=== PATIENT | male | born 1970 | race Hispanic/Latino ===

== ENCOUNTER 2020-01-30 14:46 | Emergency (ER) | payer SELFPAY ==
[2020-01-30] MEDS ORDERED: KETOROLAC TROMETHAMINE 30MG/ML ONE (16:26)
== END 2020-01-30 17:07 | disposition home or self-care (01) ==
LOC: EDH 14:46
DX: M54.5 Low back pain (principal); Z90.49 Acquired absence of other specified parts of digestive tract; Z88.0 Allergy status to penicillin
CPT/HCPCS: 72100; 96372; 99283; J1885

== ENCOUNTER 2024-01-08 20:32 | Inpatient (IN) | payer BC ==
[~2024-01-08] VITALS: Ht 167.6 cm; Wt 98.6 kg
[2024-01-08 21:29] LABS: BASOPHILS # (AUTO) 0.02 K/uL (0.00-0.20); BASOPHILS % (AUTO) 0.3 % (0.0-5.0); EOSINOPHILS % (AUTO) 1.7 % (0.0-8.0); HEMATOCRIT 40.2 % (42-54); IMMATURE GRANULOCYTE ABSOLUTE 0.03 K/uL (0-1); LYMPHOCYTES # (AUTO) 2.3 K/uL (1.0-4.8); LYMPHOCYTES % (AUTO) 40.6 % (21.0-51.0); MEAN CORPUSCULAR HEMOGLOBIN 30.6 pg (27.0-33.0); MEAN CORPUSCULAR HGB CONC 35.1 g/dL (32.0-36.0); MEAN CORPUSCULAR VOLUME 87.2 fL (79-99); MONOCYTES # (AUTO) 0.5 K/uL (0.1-1.0); MONOCYTES % (AUTO) 8.7 % (3.0-13.0); NEUTROPHILS # (AUTO) 2.8 K/uL (1.8-7.7); NEUTROPHILS % (AUTO) 48.2 % (40.0-77.0); PLATELET COUNT (AUTO) 164 K/uL (130-400); RED BLOOD CELL COUNT(AUTO) 4.61 MIL/uL (4.50-6.20); RED CELL DISTRIBUTION WIDTH 12.2 % (11.0-15.5); WHITE BLOOD COUNT (AUTO) 5.7 K/uL (4.8-10.8)
[2024-01-08 21:45] LABS: POTASSIUM 3.5 mmol/L (3.5-5.1)
[2024-01-08 21:49] LABS: ALBUMIN 3.3 g/dL (3.5-5.0); BILIRUBIN,TOTAL 0.7 mg/dL (0.2-1.0); TOTAL PROTEIN, SERUM 7.4 g/dL (6.0-8.3)
[2024-01-08] MEDS ORDERED: IOHEXOL 350 MG/ML 100ML INFUS..BTL IV ONE (22:08)
[2024-01-08 22:35] LABS: APPEARANCE,URINE CLEAR (CLEAR); BILIRUBIN,URINE NEGATIVE (NEGATIVE); COLOR,URINE YELLOW (YELLOW); GLUCOSE, URINE (UA) NEGATIVE (NEGATIVE); KETONES,URINE 20 mg/dL (NEGATIVE); LEUKOCYTE ESTERASE ,URINE NEGATIVE Leu/uL (NEGATIVE); NITRATE,URINE NEGATIVE (NEGATIVE); OCCULT BLOOD,URINE NEGATIVE (NEGATIVE); PH,URINE 5.5 (5.0-8.0); PROTEIN,URINE 20 mg/dL (NEGATIVE); UROBILINOGEN,URINE 0.2 mg/dL (0.2-1.0)
[2024-01-08 22:38] LABS: ADD UA MICROSCOPIC YES
[2024-01-08 22:41] LABS: BACTERIA,URINE FEW /HPF (None Seen); MUCUS,URINE MANY LPF (None Seen); SQUAMOUS EPITHELIAL CELL,UR RARE /HPF (0-2)
[2024-01-08] MEDS ORDERED: ZOSYN 3.375GM +NS 50ML IV ONE (23:00)
[2024-01-09] VITALS (9 sets, daily range): BP systolic 102–124; BP diastolic 50–78; PULSE 50–65; RESP 17–19; O2SAT 96–100
[2024-01-09] MEDS: METRONIDAZOLE 500MG/100ML BAG IV SCH (00:14)
[2024-01-09] MEDS: METRONIDAZOLE 500MG/100ML BAG 100 ML IV SCH (04:00)
[2024-01-09] MEDS ORDERED: ONDANSETRON 4MG INJ IV PRN (04:00)
[2024-01-09] MEDS: 0.9%NACL 1000ML 1,000 ML IV SCH (04:13)
[2024-01-09] MEDS ORDERED: CIPR500T10 PO (04:34)
[2024-01-09] MEDS ORDERED: METR-172 PO (04:34)
[2024-01-09 05:53] LABS: BASOPHILS # (AUTO) 0.02 K/uL (0.00-0.20); BASOPHILS % (AUTO) 0.4 % (0.0-5.0); EOSINOPHILS # (AUTO) 0.12 K/uL (0.00-0.70); EOSINOPHILS % (AUTO) 2.6 % (0.0-8.0); HEMATOCRIT 35.9 % (42-54); IMMATURE GRANULOCYTE ABSOLUTE 0.01 K/uL (0-1); LYMPHOCYTES # (AUTO) 2.1 K/uL (1.0-4.8); LYMPHOCYTES % (AUTO) 44.2 % (21.0-51.0); MEAN CORPUSCULAR HEMOGLOBIN 29.5 pg (27.0-33.0); MEAN CORPUSCULAR HGB CONC 34.5 g/dL (32.0-36.0); MEAN CORPUSCULAR VOLUME 85.3 fL (79-99); MONOCYTES # (AUTO) 0.5 K/uL (0.1-1.0); MONOCYTES % (AUTO) 11.2 % (3.0-13.0); NEUTROPHILS # (AUTO) 1.9 K/uL (1.8-7.7); NEUTROPHILS % (AUTO) 41.4 % (40.0-77.0); PLATELET COUNT (AUTO) 146 K/uL (130-400); RED BLOOD CELL COUNT(AUTO) 4.21 MIL/uL (4.50-6.20); RED CELL DISTRIBUTION WIDTH 12.3 % (11.0-15.5); WHITE BLOOD COUNT (AUTO) 4.6 K/uL (4.8-10.8)
[2024-01-09 06:07] LABS: BILIRUBIN,TOTAL 0.6 mg/dL (0.2-1.0); POTASSIUM 3.5 mmol/L (3.5-5.1); TOTAL PROTEIN, SERUM 6.6 g/dL (6.0-8.3)
[2024-01-09] MEDS: FAMOTIDINE 20MG VIAL IV SCH (08:52)
[2024-01-09] MEDS: LEVOFLOXACIN 500 MG/D5W 100 ML 100 ML IV SCH (09:30)
[2024-01-10] VITALS (8 sets, daily range): BP systolic 104–122; BP diastolic 57–73; PULSE 54–67; RESP 14–19; O2SAT 100
[2024-01-11] VITALS (8 sets, daily range): BP systolic 108–138; BP diastolic 54–70; PULSE 67–98; RESP 14–18; O2SAT 96–99
[2024-01-11 05:11] LABS: BASOPHILS # (AUTO) 0.02 K/uL (0.00-0.20); BASOPHILS % (AUTO) 0.4 % (0.0-5.0); EOSINOPHILS % (AUTO) 1.9 % (0.0-8.0); HEMATOCRIT 34.5 % (42-54); IMMATURE GRANULOCYTE ABSOLUTE 0.03 K/uL (0-1); LYMPHOCYTES # (AUTO) 1.5 K/uL (1.0-4.8); LYMPHOCYTES % (AUTO) 28.9 % (21.0-51.0); MEAN CORPUSCULAR HEMOGLOBIN 29.6 pg (27.0-33.0); MEAN CORPUSCULAR HGB CONC 34.5 g/dL (32.0-36.0); MEAN CORPUSCULAR VOLUME 85.8 fL (79-99); MONOCYTES # (AUTO) 0.5 K/uL (0.1-1.0); MONOCYTES % (AUTO) 10.1 % (3.0-13.0); NEUTROPHILS % (AUTO) 58.1 % (40.0-77.0); PLATELET COUNT (AUTO) 146 K/uL (130-400); RED BLOOD CELL COUNT(AUTO) 4.02 MIL/uL (4.50-6.20); WHITE BLOOD COUNT (AUTO) 5.2 K/uL (4.8-10.8)
[2024-01-11] MEDS: KETOROLAC 15MG/ML VIAL (15MG/ML) IV PRN (10:57)
[2024-01-11] MEDS ORDERED: ACETAMINOPHEN 325 MG TAB PO PRN (11:30)
[2024-01-12] VITALS (8 sets, daily range): BP systolic 99–125; BP diastolic 68–83; PULSE 52–73; RESP 14–18; O2SAT 98
[2024-01-12 04:02] LABS: BASOPHILS # (AUTO) 0.01 K/uL (0.00-0.20); BASOPHILS % (AUTO) 0.2 % (0.0-5.0); EOSINOPHILS # (AUTO) 0.05 K/uL (0.00-0.70); EOSINOPHILS % (AUTO) 0.8 % (0.0-8.0); HEMATOCRIT 34.3 % (42-54); IMMATURE GRANULOCYTE ABSOLUTE 0.03 K/uL (0-1); LYMPHOCYTES # (AUTO) 1.1 K/uL (1.0-4.8); LYMPHOCYTES % (AUTO) 16.9 % (21.0-51.0); MEAN CORPUSCULAR HEMOGLOBIN 30.7 pg (27.0-33.0); MEAN CORPUSCULAR HGB CONC 35.6 g/dL (32.0-36.0); MEAN CORPUSCULAR VOLUME 86.2 fL (79-99); MONOCYTES # (AUTO) 0.6 K/uL (0.1-1.0); MONOCYTES % (AUTO) 9.6 % (3.0-13.0); NEUTROPHILS # (AUTO) 4.7 K/uL (1.8-7.7); PLATELET COUNT (AUTO) 129 K/uL (130-400); RED BLOOD CELL COUNT(AUTO) 3.98 MIL/uL (4.50-6.20); RED CELL DISTRIBUTION WIDTH 11.9 % (11.0-15.5); WHITE BLOOD COUNT (AUTO) 6.5 K/uL (4.8-10.8)
[2024-01-12 04:19] LABS: CREATININE 0.9 mg/dL (0.5-1.3); POTASSIUM 3.2 mmol/L (3.5-5.1)
[2024-01-12] MEDS ORDERED: POTASSIUM CHLORIDE 20MEQ/100ML 100 ML IV PRN (10:00)
[2024-01-12] MEDS ORDERED: POTASSIUM CHLORIDE 10% ELIXIR 20 MEQ/15 ML UDCUP PO PRN (10:00)
[2024-01-12] MEDS: DIPHENHYDRAMINE HCL 25 MG CAPSULE PO PRN (10:36)
[2024-01-12] MEDS: KCL 20 MEQ ERTAB PO PRN (10:36)
[2024-01-12] MEDS: MAGNESIUM 2GM PREMIX 50ML 50 ML IV PRN (10:36)
[2024-01-12] MEDS: MORPHINE 2 MG SYG IVP PRN (12:20)
[2024-01-12 13:14] LABS: C DIFFICILE TOXIN A/B Not Detected (Not Detected); ENTEROAGGREGATIVE ECOLI Not Detected (Not Detected); GIARDIA LAMBLIA Not Detected (Not Detected); PLESIOMONAS SHIGELOIDES Not Detected (Not Detected); SAPOVIRUS Not Detected (Not Detected); SHIGELLA/ENTEROINVASIVE E COLI Not Detected (Not Detected); VIBRIO Not Detected (Not Detected); VIBRIO CHOLERAE Not Detected (Not Detected)
[2024-01-13] VITALS (7 sets, daily range): BP systolic 117–130; BP diastolic 70–85; PULSE 56–66; RESP 14–18; O2SAT 97
[2024-01-13 03:36] LABS: BASOPHILS # (AUTO) 0.02 K/uL (0.00-0.20); BASOPHILS % (AUTO) 0.4 % (0.0-5.0); IMMATURE GRANULOCYTE ABSOLUTE 0.03 K/uL (0-1); LYMPHOCYTES # (AUTO) 1.5 K/uL (1.0-4.8); LYMPHOCYTES % (AUTO) 29.8 % (21.0-51.0); MEAN CORPUSCULAR HEMOGLOBIN 30.3 pg (27.0-33.0); MEAN CORPUSCULAR HGB CONC 35.9 g/dL (32.0-36.0); MEAN CORPUSCULAR VOLUME 84.6 fL (79-99); MONOCYTES # (AUTO) 0.7 K/uL (0.1-1.0); MONOCYTES % (AUTO) 12.9 % (3.0-13.0); NEUTROPHILS # (AUTO) 2.8 K/uL (1.8-7.7); NEUTROPHILS % (AUTO) 54.3 % (40.0-77.0); PLATELET COUNT (AUTO) 120 K/uL (130-400); RED BLOOD CELL COUNT(AUTO) 4.02 MIL/uL (4.50-6.20); RED CELL DISTRIBUTION WIDTH 12.2 % (11.0-15.5); WHITE BLOOD COUNT (AUTO) 5.1 K/uL (4.8-10.8)
[2024-01-13 03:42] LABS: CREATININE 0.8 mg/dL (0.5-1.3)
[2024-01-13] MEDS ORDERED: DIATR MEGLU/DIATRIZOATE SODIUM 30 ML BOTTLE ONE (07:54)
[2024-01-13] MEDS ORDERED: IOHEXOL-350 75 ML VIAL IV ONE (10:19)
[2024-01-13] MEDS ORDERED: PHARMACY COMMUNICATION MISC SCH (13:30)
[2024-01-13] MEDS ORDERED: COMPOUND IV MISC 1 EACH IVSOLN MISC PRN (13:30)
[2024-01-13] MEDS: FLUCONAZOLE 200 MG/NS 100 ML 100 ML IV SCH (13:32)
[2024-01-13] MEDS: MEROPENEM 1 GM in 0.9%NACL 100ML 100 ML IVPB SCH (15:37)
[2024-01-14] VITALS (9 sets, daily range): BP systolic 102–137; BP diastolic 66–79; PULSE 61–70; RESP 18–20; O2SAT 98–99
[2024-01-14 09:29] LABS: BASOPHILS # (AUTO) 0.01 K/uL (0.00-0.20); BASOPHILS % (AUTO) 0.2 % (0.0-5.0); EOSINOPHILS # (AUTO) 0.11 K/uL (0.00-0.70); EOSINOPHILS % (AUTO) 1.8 % (0.0-8.0); HEMATOCRIT 36.3 % (42-54); IMMATURE GRANULOCYTE ABSOLUTE 0.04 K/uL (0-1); LYMPHOCYTES # (AUTO) 1.2 K/uL (1.0-4.8); LYMPHOCYTES % (AUTO) 18.8 % (21.0-51.0); MEAN CORPUSCULAR HEMOGLOBIN 30.3 pg (27.0-33.0); MEAN CORPUSCULAR HGB CONC 34.7 g/dL (32.0-36.0); MEAN CORPUSCULAR VOLUME 87.3 fL (79-99); MONOCYTES # (AUTO) 0.6 K/uL (0.1-1.0); MONOCYTES % (AUTO) 9.5 % (3.0-13.0); NEUTROPHILS # (AUTO) 4.3 K/uL (1.8-7.7); NEUTROPHILS % (AUTO) 69.1 % (40.0-77.0); PLATELET COUNT (AUTO) 108 K/uL (130-400); RED BLOOD CELL COUNT(AUTO) 4.16 MIL/uL (4.50-6.20); RED CELL DISTRIBUTION WIDTH 12.3 % (11.0-15.5); WHITE BLOOD COUNT (AUTO) 6.2 K/uL (4.8-10.8)
[2024-01-14 09:36] LABS: CREATININE 0.8 mg/dL (0.5-1.3); MAGNESIUM 1.7 mg/dL (1.80-2.40); POTASSIUM 3.7 mmol/L (3.5-5.1)
[2024-01-15 04:00] VITALS: BP 101/64; PULSE 64; RESP 19
[2024-01-15 07:11] VITALS: BP 116/65; PULSE 54; RESP 17
[2024-01-15 08:00] VITALS: O2SAT 99
[2024-01-15 11:45] VITALS: BP 127/66; PULSE 57; RESP 16
[2024-01-15] MEDS: MORPHINE 2 MG SYG IVP PRN (15:19)
[2024-01-15 16:22] VITALS: BP 115/63; PULSE 62; RESP 17
[2024-01-15 20:00] VITALS: BP 115/73; PULSE 67; RESP 17
[2024-01-16] VITALS (7 sets, daily range): BP systolic 107–135; BP diastolic 66–78; PULSE 51–71; RESP 17–18; O2SAT 97–100
[2024-01-16 05:21] LABS: BASOPHILS # (AUTO) 0.02 K/uL (0.00-0.20); BASOPHILS % (AUTO) 0.4 % (0.0-5.0); EOSINOPHILS # (AUTO) 0.14 K/uL (0.00-0.70); EOSINOPHILS % (AUTO) 2.6 % (0.0-8.0); HEMATOCRIT 37.8 % (42-54); IMMATURE GRANULOCYTE ABSOLUTE 0.06 K/uL (0-1); LYMPHOCYTES # (AUTO) 2.2 K/uL (1.0-4.8); LYMPHOCYTES % (AUTO) 39.6 % (21.0-51.0); MEAN CORPUSCULAR HEMOGLOBIN 29.9 pg (27.0-33.0); MEAN CORPUSCULAR HGB CONC 34.1 g/dL (32.0-36.0); MEAN CORPUSCULAR VOLUME 87.5 fL (79-99); MONOCYTES # (AUTO) 0.6 K/uL (0.1-1.0); MONOCYTES % (AUTO) 10.3 % (3.0-13.0); NEUTROPHILS # (AUTO) 2.5 K/uL (1.8-7.7); PLATELET COUNT (AUTO) 120 K/uL (130-400); RED BLOOD CELL COUNT(AUTO) 4.32 MIL/uL (4.50-6.20); RED CELL DISTRIBUTION WIDTH 12.6 % (11.0-15.5); WHITE BLOOD COUNT (AUTO) 5.5 K/uL (4.8-10.8)
[2024-01-16 05:32] LABS: ALBUMIN 2.7 g/dL (3.5-5.0); CREATININE 0.9 mg/dL (0.5-1.3); MAGNESIUM 1.7 mg/dL (1.80-2.40); POTASSIUM 3.7 mmol/L (3.5-5.1); TOTAL PROTEIN, SERUM 6.1 g/dL (6.0-8.3)
[2024-01-16 06:03] LABS: BILIRUBIN,TOTAL 0.7 mg/dL (0.2-1.0)
[2024-01-17] VITALS (8 sets, daily range): BP systolic 107–120; BP diastolic 63–74; PULSE 55–63; RESP 16–20; O2SAT 98–100
[2024-01-17 05:42] LABS: BASOPHILS # (AUTO) 0.02 K/uL (0.00-0.20); BASOPHILS % (AUTO) 0.4 % (0.0-5.0); EOSINOPHILS # (AUTO) 0.11 K/uL (0.00-0.70); EOSINOPHILS % (AUTO) 2.2 % (0.0-8.0); HEMATOCRIT 35.6 % (42-54); IMMATURE GRANULOCYTE ABSOLUTE 0.03 K/uL (0-1); LYMPHOCYTES # (AUTO) 1.9 K/uL (1.0-4.8); LYMPHOCYTES % (AUTO) 37.8 % (21.0-51.0); MEAN CORPUSCULAR HEMOGLOBIN 30.7 pg (27.0-33.0); MEAN CORPUSCULAR HGB CONC 36.5 g/dL (32.0-36.0); MONOCYTES # (AUTO) 0.5 K/uL (0.1-1.0); MONOCYTES % (AUTO) 9.7 % (3.0-13.0); NEUTROPHILS # (AUTO) 2.5 K/uL (1.8-7.7); NEUTROPHILS % (AUTO) 49.3 % (40.0-77.0); PLATELET COUNT (AUTO) 132 K/uL (130-400); RED BLOOD CELL COUNT(AUTO) 4.24 MIL/uL (4.50-6.20); RED CELL DISTRIBUTION WIDTH 12.6 % (11.0-15.5)
[2024-01-17 05:50] LABS: CREATININE 0.8 mg/dL (0.5-1.3); POTASSIUM 3.6 mmol/L (3.5-5.1)
[2024-01-17] MEDS: MAGNESIUM OXIDE 400 MG TABLET PO SCH (23:01)
[2024-01-18 04:00] VITALS: BP 104/65; PULSE 51; RESP 19
[2024-01-18 08:00] VITALS: BP 118/74; PULSE 70; RESP 16
[2024-01-18] MEDS ORDERED: MAGN400T7 PO (10:51)
[2024-01-18 12:00] VITALS: BP 109/70; PULSE 65; RESP 18
== END 2024-01-18 13:00 | disposition home or self-care (01) | DRG 392 ==
LOC: EDH 20:32 → EDHIP 01-09 03:56 → OBSVTOIN 01-09 03:56 → 3DH 01-09 04:10
PROVIDERS: ADMIT Hospitalist; ATTEND Hospitalist
DX: K57.32 Diverticulitis of large intestine without perforation or abscess without bleeding (principal); E44.1 Mild protein-calorie malnutrition; Z68.33 Body mass index [BMI] 33.0-33.9, adult; E66.9 Obesity, unspecified; K40.20 Bilateral inguinal hernia, without obstruction or gangrene, not specified as recurrent; E87.6 Hypokalemia
CPT/HCPCS: 36415; 74018; 74177; 80048; 80053; 81001; 83690; 83735; 84145; 85025; 87507; G0378; J1450; J1885; J1956; J2185; J2270; J3475; J3490; J7030; Q0163; Q9963; Q9967

== ENCOUNTER 2024-01-27 11:11 | Inpatient (IN) | payer BC ==
[~2024-01-27] VITALS: Ht 172.7 cm; Wt 89.0 kg
[~2024-01-27 11:11] MED LIST: MAGN400T7 PO
[2024-01-27 11:44] LABS: BASOPHILS # (AUTO) 0.03 K/uL (0.00-0.20); BASOPHILS % (AUTO) 0.3 % (0.0-5.0); EOSINOPHILS # (AUTO) 0.01 K/uL (0.00-0.70); EOSINOPHILS % (AUTO) 0.1 % (0.0-8.0); HEMATOCRIT 47.7 % (42-54); IMMATURE GRANULOCYTE ABSOLUTE 0.03 K/uL (0-1); LYMPHOCYTES # (AUTO) 1.9 K/uL (1.0-4.8); LYMPHOCYTES % (AUTO) 15.7 % (21.0-51.0); MEAN CORPUSCULAR HEMOGLOBIN 30.5 pg (27.0-33.0); MEAN CORPUSCULAR VOLUME 87.2 fL (79-99); MONOCYTES % (AUTO) 8.5 % (3.0-13.0); NEUTROPHILS # (AUTO) 8.9 K/uL (1.8-7.7); NEUTROPHILS % (AUTO) 75.1 % (40.0-77.0); PLATELET COUNT (AUTO) 130 K/uL (130-400); RED BLOOD CELL COUNT(AUTO) 5.47 MIL/uL (4.50-6.20); RED CELL DISTRIBUTION WIDTH 12.2 % (11.0-15.5); WHITE BLOOD COUNT (AUTO) 11.8 K/uL (4.8-10.8)
[2024-01-27 11:47] LABS: BILIRUBIN,URINE 0.5 mg/dL (NEGATIVE); GLUCOSE, URINE (UA) NEGATIVE (NEGATIVE); KETONES,URINE 150 mg/dL (NEGATIVE); LEUKOCYTE ESTERASE ,URINE NEGATIVE Leu/uL (NEGATIVE); NITRATE,URINE NEGATIVE (NEGATIVE); OCCULT BLOOD,URINE MODERATE (NEGATIVE); PROTEIN,URINE 300 mg/dL (NEGATIVE)
[2024-01-27 11:50] LABS: ADD UA MICROSCOPIC YES; APPEARANCE,URINE HAZY (CLEAR); COLOR,URINE DARK-YELLOW (YELLOW)
[2024-01-27 11:52] LABS: BACTERIA,URINE FEW /HPF (None Seen); MUCUS,URINE MANY LPF (None Seen); RBC,URINE 51-100 /HPF (0-1); SQUAMOUS EPITHELIAL CELL,UR RARE /HPF (0-2)
[2024-01-27 11:54] LABS: CREATININE 1.1 mg/dL (0.5-1.3); POTASSIUM 3.8 mmol/L (3.5-5.1)
[2024-01-27 11:59] LABS: ALBUMIN 4.1 g/dL (3.5-5.0); BILIRUBIN,TOTAL 2.1 mg/dL (0.2-1.0); TOTAL PROTEIN, SERUM 8.8 g/dL (6.0-8.3)
[2024-01-27] MEDS: 0.9%NACL 1000ML 1,000 ML IV ONE ×2 (14:14→14:16)
[2024-01-27] MEDS: MORPHINE 4 MG SYG ONE (14:14)
[2024-01-27] MEDS: MORPHINE 4 MG SYG IVP ONE (14:16)
[2024-01-27] MEDS: LEVOFLOXACIN 500 MG/D5W 100 ML 100 ML IV ONE (15:49)
[2024-01-27] MEDS: 0.9%NACL 1000ML 1,000 ML IV SCH (16:42)
[2024-01-27] MEDS: METRONIDAZOLE 500MG/100ML BAG IV ONE (16:42)
[2024-01-27 16:56] LABS: HEMOGLOBIN A1C 5.2 % (4.0-6.0)
[2024-01-27 17:18] LABS: THYROID STIMULATING HORMONE 0.95 uIU/mL (0.36-3.74)
[2024-01-27 18:00] VITALS: O2SAT 98
[2024-01-27 18:18] LABS: INR 1.06 (0.85-1.15); PROTHROMBIN TIME 12.4 SEC (9.6-11.6)
[2024-01-27 18:20] LABS: PARTIAL THROMBOPLASTIN TIME 30.6 SEC (26.3-35.5)
[2024-01-27 18:30] VITALS: BP 119/64; PULSE 57; RESP 16
[2024-01-27] MEDS: FAMOTIDINE 20MG VIAL IV SCH (19:46)
[2024-01-27] MEDS: METRONIDAZOLE 500MG/100ML BAG 100 ML IVPB SCH (19:46)
[2024-01-27 20:00] VITALS: BP 104/53; PULSE 61; RESP 19; O2SAT 98
[2024-01-28] VITALS (9 sets, daily range): BP systolic 101–119; BP diastolic 55–65; PULSE 51–77; RESP 16–20; O2SAT 98
[2024-01-28 06:18] LABS: BASOPHILS # (AUTO) 0.03 K/uL (0.00-0.20); BASOPHILS % (AUTO) 0.4 % (0.0-5.0); EOSINOPHILS # (AUTO) 0.03 K/uL (0.00-0.70); EOSINOPHILS % (AUTO) 0.4 % (0.0-8.0); HEMATOCRIT 36.1 % (42-54); IMMATURE GRANULOCYTE ABSOLUTE 0.03 K/uL (0-1); LYMPHOCYTES # (AUTO) 1.6 K/uL (1.0-4.8); LYMPHOCYTES % (AUTO) 20.3 % (21.0-51.0); MEAN CORPUSCULAR HEMOGLOBIN 29.9 pg (27.0-33.0); MEAN CORPUSCULAR HGB CONC 34.1 g/dL (32.0-36.0); MEAN CORPUSCULAR VOLUME 87.8 fL (79-99); MONOCYTES % (AUTO) 12.6 % (3.0-13.0); NEUTROPHILS # (AUTO) 5.1 K/uL (1.8-7.7); NEUTROPHILS % (AUTO) 65.9 % (40.0-77.0); PLATELET COUNT (AUTO) 95 K/uL (130-400); RED BLOOD CELL COUNT(AUTO) 4.11 MIL/uL (4.50-6.20); RED CELL DISTRIBUTION WIDTH 12.2 % (11.0-15.5); WHITE BLOOD COUNT (AUTO) 7.8 K/uL (4.8-10.8)
[2024-01-28 06:36] LABS: CREATININE 0.8 mg/dL (0.5-1.3); POTASSIUM 3.9 mmol/L (3.5-5.1)
[2024-01-28] MEDS: LEVOFLOXACIN 500 MG/D5W 100 ML 100 ML IV SCH (09:20)
[2024-01-28] MEDS: FLUCONAZOLE 200 MG/NS 100 ML 100 ML IV SCH (12:16)
[2024-01-28] MEDS: PHENAZOPYRIDINE HCL 200 MG TABLET PO PRN (12:16)
[2024-01-28] MEDS ORDERED: COMPOUND IV MISC 1 EACH IVSOLN MISC PRN (12:30)
[2024-01-28] MEDS: MORPHINE 4 MG SYG IVP PRN (14:16)
[2024-01-28] MEDS: MEROPENEM 1 GM in 0.9%NACL 100ML IVPB SCH (14:18)
[2024-01-29] VITALS (17 sets, daily range): BP systolic 96–133; BP diastolic 55–107; PULSE 56–75; RESP 14–18; O2SAT 98
[2024-01-29 05:13] LABS: BASOPHILS # (AUTO) 0.01 K/uL (0.00-0.20); BASOPHILS % (AUTO) 0.1 % (0.0-5.0); EOSINOPHILS # (AUTO) 0.03 K/uL (0.00-0.70); EOSINOPHILS % (AUTO) 0.3 % (0.0-8.0); HEMATOCRIT 35.7 % (42-54); IMMATURE GRANULOCYTE ABSOLUTE 0.05 K/uL (0-1); LYMPHOCYTES # (AUTO) 1.5 K/uL (1.0-4.8); LYMPHOCYTES % (AUTO) 16.2 % (21.0-51.0); MEAN CORPUSCULAR HEMOGLOBIN 29.4 pg (27.0-33.0); MEAN CORPUSCULAR HGB CONC 33.9 g/dL (32.0-36.0); MEAN CORPUSCULAR VOLUME 86.9 fL (79-99); MONOCYTES # (AUTO) 1.1 K/uL (0.1-1.0); MONOCYTES % (AUTO) 12.3 % (3.0-13.0); NEUTROPHILS # (AUTO) 6.3 K/uL (1.8-7.7); NEUTROPHILS % (AUTO) 70.5 % (40.0-77.0); PLATELET COUNT (AUTO) 109 K/uL (130-400); RED BLOOD CELL COUNT(AUTO) 4.11 MIL/uL (4.50-6.20); RED CELL DISTRIBUTION WIDTH 12.3 % (11.0-15.5)
[2024-01-29 05:26] LABS: INR 1.03 (0.85-1.15); PROTHROMBIN TIME 12.1 SEC (9.6-11.6)
[2024-01-29 05:27] LABS: PARTIAL THROMBOPLASTIN TIME 31.9 SEC (26.3-35.5)
[2024-01-29 05:35] LABS: CREATININE 0.9 mg/dL (0.5-1.3); POTASSIUM 3.7 mmol/L (3.5-5.1)
[2024-01-29] MEDS ORDERED: MEROPENEM 1 GM in 0.9%NACL 100ML IVPB SCH (21:00)
[2024-01-30] VITALS (8 sets, daily range): BP systolic 114–121; BP diastolic 67–76; PULSE 57–82; RESP 14–18; O2SAT 98
[2024-01-30] MEDS: MEROPENEM 1 GM in 0.9%NACL 100ML IVPB SCH (00:18)
[2024-01-30] MEDS: KETOROLAC 15MG/ML VIAL (15MG/ML) IV ONE (02:37)
[2024-01-30] MEDS: ENOXAPARIN SODIUM 30 MG/0.3 ML SQ SCH (08:51)
[2024-01-30 14:10] LABS: INR 1.02 (0.85-1.15)
[2024-01-30] MEDS: ACETAMINOPHEN 325 MG TAB PO PRN (23:15)
[2024-01-31] VITALS (7 sets, daily range): BP systolic 117–129; BP diastolic 71–82; PULSE 58–69; RESP 14–19; O2SAT 98
[2024-01-31 06:51] LABS: INR 1.04 (0.85-1.15); PROTHROMBIN TIME 12.2 SEC (9.6-11.6)
[2024-01-31 06:52] LABS: PARTIAL THROMBOPLASTIN TIME 31.1 SEC (26.3-35.5)
[2024-01-31 15:52] LABS: HIV 1&2 ANTIBODY Non-Reactive (Negative); HIV-1 p24 Antigen Non-Reactive (Negative)
[2024-02-01] VITALS (9 sets, daily range): BP systolic 108–139; BP diastolic 63–82; PULSE 55–87; RESP 17–19; TEMP 102.1; O2SAT 97
[2024-02-01] MEDS ORDERED: IOHEXOL 350 MG/ML 100ML INFUS..BTL IV ONE (03:39)
[2024-02-01] MEDS ORDERED: IOHEXOL-350 75 ML VIAL IV ONE (05:47)
[2024-02-01] MEDS ORDERED: PHARMACY COMMUNICATION MISC ONE (06:10)
[2024-02-01] MEDS: TAMSULOSIN HCL 0.4 MG CAP.ER.24H PO SCH (09:35)
[2024-02-01] MEDS: KETOROLAC 15MG/ML VIAL (15MG/ML) IV PRN (10:17)
[2024-02-01 11:24] LABS: APPEARANCE,URINE CLEAR (CLEAR); BILIRUBIN,URINE NEGATIVE (NEGATIVE); COLOR,URINE YELLOW (YELLOW); GLUCOSE, URINE (UA) NEGATIVE (NEGATIVE); KETONES,URINE 60 mg/dL (NEGATIVE); LEUKOCYTE ESTERASE ,URINE NEGATIVE Leu/uL (NEGATIVE); NITRATE,URINE NEGATIVE (NEGATIVE); PH,URINE 6.5 (5.0-8.0); PROTEIN,URINE 100 mg/dL (NEGATIVE); UROBILINOGEN,URINE >=8.0 mg/dL (0.2-1.0)
[2024-02-01 11:26] LABS: ADD UA MICROSCOPIC YES
[2024-02-01 11:27] LABS: BACTERIA,URINE RARE /HPF (None Seen); SQUAMOUS EPITHELIAL CELL,UR RARE /HPF (0-2)
[2024-02-01] MEDS: 0.9%NACL 10ML VIAL IV SCH (21:00)
[2024-02-02] VITALS (9 sets, daily range): BP systolic 100–146; BP diastolic 55–84; PULSE 62–88; RESP 14–19; O2SAT 97–99
[2024-02-02 04:19] LABS: BASOPHILS # (AUTO) 0.02 K/uL (0.00-0.20); BASOPHILS % (AUTO) 0.2 % (0.0-5.0); EOSINOPHILS # (AUTO) 0.03 K/uL (0.00-0.70); EOSINOPHILS % (AUTO) 0.3 % (0.0-8.0); IMMATURE GRANULOCYTE ABSOLUTE 0.04 K/uL (0-1); LYMPHOCYTES # (AUTO) 1.6 K/uL (1.0-4.8); LYMPHOCYTES % (AUTO) 15.3 % (21.0-51.0); MEAN CORPUSCULAR HEMOGLOBIN 29.6 pg (27.0-33.0); MEAN CORPUSCULAR HGB CONC 34.8 g/dL (32.0-36.0); MEAN CORPUSCULAR VOLUME 84.8 fL (79-99); MONOCYTES # (AUTO) 0.8 K/uL (0.1-1.0); MONOCYTES % (AUTO) 7.6 % (3.0-13.0); NEUTROPHILS # (AUTO) 8.1 K/uL (1.8-7.7); NEUTROPHILS % (AUTO) 76.2 % (40.0-77.0); PLATELET COUNT (AUTO) 142 K/uL (130-400); RED BLOOD CELL COUNT(AUTO) 3.89 MIL/uL (4.50-6.20); RED CELL DISTRIBUTION WIDTH 12.4 % (11.0-15.5); WHITE BLOOD COUNT (AUTO) 10.7 K/uL (4.8-10.8)
[2024-02-02 04:22] LABS: ALBUMIN 2.6 g/dL (3.5-5.0); CREATININE 0.7 mg/dL (0.5-1.3); MAGNESIUM 1.6 mg/dL (1.80-2.40); PHOSPHORUS 3.8 mg/dL (2.5-4.9); POTASSIUM 3.2 mmol/L (3.5-5.1); TOTAL PROTEIN, SERUM 6.4 g/dL (6.0-8.3)
[2024-02-02] MEDS: KCL 20 MEQ ERTAB PO SCH (22:23)
[2024-02-03 03:00] VITALS: BP 110/70; PULSE 76; RESP 14
[2024-02-03 05:28] LABS: BASOPHILS # (AUTO) 0.02 K/uL (0.00-0.20); BASOPHILS % (AUTO) 0.3 % (0.0-5.0); EOSINOPHILS # (AUTO) 0.06 K/uL (0.00-0.70); EOSINOPHILS % (AUTO) 0.9 % (0.0-8.0); HEMATOCRIT 30.6 % (42-54); IMMATURE GRANULOCYTE ABSOLUTE 0.02 K/uL (0-1); LYMPHOCYTES # (AUTO) 1.3 K/uL (1.0-4.8); LYMPHOCYTES % (AUTO) 18.5 % (21.0-51.0); MEAN CORPUSCULAR HEMOGLOBIN 29.9 pg (27.0-33.0); MEAN CORPUSCULAR HGB CONC 34.6 g/dL (32.0-36.0); MEAN CORPUSCULAR VOLUME 86.4 fL (79-99); MONOCYTES # (AUTO) 0.7 K/uL (0.1-1.0); MONOCYTES % (AUTO) 10.8 % (3.0-13.0); NEUTROPHILS # (AUTO) 4.7 K/uL (1.8-7.7); NEUTROPHILS % (AUTO) 69.2 % (40.0-77.0); PLATELET COUNT (AUTO) 138 K/uL (130-400); RED BLOOD CELL COUNT(AUTO) 3.54 MIL/uL (4.50-6.20); RED CELL DISTRIBUTION WIDTH 12.2 % (11.0-15.5); WHITE BLOOD COUNT (AUTO) 6.9 K/uL (4.8-10.8)
[2024-02-03 05:46] LABS: ALBUMIN 2.3 g/dL (3.5-5.0); BILIRUBIN,TOTAL 0.8 mg/dL (0.2-1.0); CREATININE 0.6 mg/dL (0.5-1.3); POTASSIUM 3.3 mmol/L (3.5-5.1); TOTAL PROTEIN, SERUM 5.9 g/dL (6.0-8.3)
[2024-02-03 07:52] VITALS: BP_DIAS 73; PULSE 72; RESP 18
[2024-02-03 08:00] VITALS: O2SAT 98
[2024-02-03 11:30] VITALS: BP 112/69; PULSE 72; RESP 18
[2024-02-03 15:23] VITALS: BP 128/72; PULSE 65; RESP 16
[2024-02-03] MEDS: KCL 20 MEQ ERTAB PO ONE ×2 (16:41→21:54)
[2024-02-03 20:00] VITALS: BP 122/70; PULSE 64; RESP 20; O2SAT 100
[2024-02-04] VITALS: BP 116/63; PULSE 63; RESP 20
[2024-02-04 04:00] VITALS: BP 120/69; PULSE 69; RESP 19
[2024-02-04 06:37] LABS: BASOPHILS # (AUTO) 0.02 K/uL (0.00-0.20); BASOPHILS % (AUTO) 0.3 % (0.0-5.0); EOSINOPHILS % (AUTO) 1.5 % (0.0-8.0); HEMATOCRIT 32.7 % (42-54); IMMATURE GRANULOCYTE ABSOLUTE 0.04 K/uL (0-1); LYMPHOCYTES # (AUTO) 1.7 K/uL (1.0-4.8); LYMPHOCYTES % (AUTO) 26.7 % (21.0-51.0); MEAN CORPUSCULAR HEMOGLOBIN 29.9 pg (27.0-33.0); MEAN CORPUSCULAR HGB CONC 34.3 g/dL (32.0-36.0); MEAN CORPUSCULAR VOLUME 87.2 fL (79-99); MONOCYTES # (AUTO) 0.6 K/uL (0.1-1.0); MONOCYTES % (AUTO) 9.5 % (3.0-13.0); NEUTROPHILS % (AUTO) 61.4 % (40.0-77.0); PLATELET COUNT (AUTO) 138 K/uL (130-400); RED BLOOD CELL COUNT(AUTO) 3.75 MIL/uL (4.50-6.20); RED CELL DISTRIBUTION WIDTH 12.2 % (11.0-15.5); WHITE BLOOD COUNT (AUTO) 6.5 K/uL (4.8-10.8)
[2024-02-04 07:30] LABS: ALBUMIN 2.4 g/dL (3.5-5.0); BILIRUBIN,TOTAL 0.9 mg/dL (0.2-1.0); CREATININE 0.7 mg/dL (0.5-1.3); POTASSIUM 3.8 mmol/L (3.5-5.1); TOTAL PROTEIN, SERUM 6.2 g/dL (6.0-8.3)
[2024-02-04 07:57] VITALS: BP 146/65; PULSE 74; RESP 17
[2024-02-04 08:00] VITALS: O2SAT 100
[2024-02-04] MEDS ORDERED: FAMO20TA8 PO (11:41)
[2024-02-04] MEDS ORDERED: TAMS-1 PO (11:41)
[2024-02-04] MEDS: TAMSULOSIN HCL 0.4 MG CAP.ER.24H PO ONE (18:14)
[2024-02-04] MEDS: FAMOTIDINE 20MG TAB PO ONE (18:15)
== END 2024-02-04 18:50 | disposition home or self-care (01) | DRG 392 ==
LOC: EDH 11:11 → EDHIP 16:27 → 4CH 16:58 → 3DH 17:48
PROVIDERS: ADMIT Internal Medicine; ATTEND Internal Medicine
PROC: 0WJG3ZZ Inspection of Peritoneal Cavity, Percutaneous Approach (ICD-10-PCS; principal; 2024-01-29)
DX: K57.20 Diverticulitis of large intestine with perforation and abscess without bleeding (principal); E66.9 Obesity, unspecified; E11.9 Type 2 diabetes mellitus without complications; I10 Essential (primary) hypertension; N40.0 Benign prostatic hyperplasia without lower urinary tract symptoms; M54.9 Dorsalgia, unspecified; E80.6 Other disorders of bilirubin metabolism; R63.4 Abnormal weight loss; N48.89 Other specified disorders of penis; Z68.29 Body mass index [BMI] 29.0-29.9, adult; Z87.442 Personal history of urinary calculi; Z88.0 Allergy status to penicillin; Z90.49 Acquired absence of other specified parts of digestive tract; Z91.199 Patient's noncompliance with other medical treatment and regimen due to unspecified reason
CPT/HCPCS: 36415; 36569; 71045; 74176; 74177; 75989; 76770; 80048; 80053; 81001; 83036; 83605; 83735; 84100; 84145; 84443; 85025; 85610; 85730; 86140; 86701; 87040; 87088; 87390; 87491; 87591; 93005; 96365; 96375; C1894; G0378; J1450; J1650; J1885; J1956; J2185; J2270; J3490; J7030; Q9967